=== PATIENT | female | born 1990 | race Caucasian/White ===

== ENCOUNTER 2023-05-20 20:44 | Emergency (ER) | payer OTHER, SELFPAY ==
[2023-05-20 20:45] VITALS: BP 144/101; PULSE 89; RESP 15; TEMP 36.6; O2SAT 97; BMI 32.8
--- NOTE | 2023-05-20 21:00 | EDS_ITS ---
HPI History of Present Illness Chief Complaint: Allergic Reaction Informant: patient Narrative Narrative: Patient presents with concern for allergic reaction. About 2 hours ago she noticed that she had a little fullness of her upper lip. She then looked in the mirror noticed that she had a little bit of facial swelling. Noticed that she had diffuse hives. There is some itching. But no trouble breathing. Patient had some eggs and potatoes for dinner but this is nothing different than she has had many times. No other known exposures. I do find out that the patient has had a little bit of a URI recently she has been taking some elhy-wfh-dfhywto cold medicine. I recommend she hold off on this as this is the only thing that is new or different and may be contributing to her symptoms. She has no history of allergy to any compounds and has never had anaphylaxis. PFSH PFS Home Medications famotidine 20 mg tablet (Pepcid) 20 mg PO DAILY #7 tabs 05/20/23 [Rx Last Taken Unknown] prednisone 20 mg tablet 60 mg (3 x 20 mg) PO DAILY #15 TABLETS 05/20/23 [Rx Last Taken Unknown] Allergy/AdvReac Type Severity Reaction Status Date / Time No Known Allergies Allergy Verified 05/20/23 20:50 Social History Smoking Status: Never smoker ROS ROS ED ROS Narrative A complete review of systems was performed and is negative except as documented in the history of present illness. Some specific details below. Constitutional: No recent fevers or chills. She has had some mild URI symptoms though. EYE: No discharge, visual complaints, or pain. ENT: No difficulty swallowing. Mild swelling of the lip. No trouble speaking. CV: No chest pain or palpitations. No syncope or near syncope. Respiratory: No trouble breathing. No wheezing. GI: No abdominal pain. No nausea vomiting diarrhea. No blood in stool. : No frequency dysuria or hematuria. Musculoskeletal: No recent trauma. No pains. No swelling. Skin: She does have diffuse hives. Mild itching. Neuro: No weakness or numbness. Endocrine: No polyuria or polydipsia. EXAM Physical Exam Narrative Exam Narrative: CONSTITUTIONAL: Patient is nontoxic in appearance. The patient looks comfortable. Work of breathing looks normal. HEENT: No notable trauma. Mucous membranes moist. She does have a little bit of fullness of her upper lip. Not on ARNOLDO inhibitors. No intraoral swelling. Tonsils look normal. Voice is normal. Swallowing and handling secretions are normal. EYES: No conjunctival injection. No proptosis. NECK:No JVD. No stridor. CARDIOVASCULAR: Regular rate. Regular rhythm. No notable murmur. No JVD. Pulses are normal distally RESPIRATORY: No respiratory distress. Breathing is unlabored. No wheezes. Saturations are normal 97% on room air showing no hypoxia. GASTROINTESTINAL: Not distended. Bowel sounds are normal. No tenderness. No guarding. No rebound. No palpable mass. No bruit is heard. GENITOURINARY: No tenderness over the bladder. No CVA tenderness. MUSCULOSKELETAL: Atraumatic. NEUROLOGICAL: Patient is alert and appropriate. No focal deficit noted. SKIN: Patient does have diffuse hives that michael easily with pressure. No vesicles. PSYCHIATRIC: Patient is calm. Mood is appropriate. Const Vital Signs: 05/20/23 20:45 Temperature 97.9 F Temperature Source Temporal Pulse Rate 89 Respiratory Rate 15 Blood Pressure 144/101 H Blood Pressure Mean 115 Pulse Ox 97 Oxygen Delivery Method Room Air MDM MDM MDM Narrative Medical decision making narrative: Patient's rechecked. The lip swelling is markedly better. The rash is better. There is still little bit of itching. No new symptoms have developed. Overall trend is improving. We will keep her on meds for several days. We discussed the reasons and dosing of these meds. If this is worsening, hives worsening, trouble breathing she should return. Discharge Plan Triage Chief Complaint: Allergic Reaction ED Provider: Jericho Childs Dx/Rx/DC Orders Clinical Impression: Allergic reaction Instructions: ED General Allergic Reactions Prescriptions: New prednisone 20 mg tablet 60 mg PO DAILY Qty: 15 0RF famotidine [Pepcid] 20 mg tablet 20 mg PO DAILY Qty: 7 0RF Primary Care Provider: Care Physician,No Primary Referrals: Blaine Tatum MD [Med Staff - Business Systems Administrator] - 3-5 Days Care Physician,No Primary [Primary Care Provider] - Activity Restrictions/Additional Instructions: Take Claritin once a day or 25-50 mg of Benadryl 3 times a day for the next 3-5 days Disposition Disposition: Home, Self Care 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 Next of kin: [place] law dictates a PRIORITY LIST for identifying legal decision-maker/legal next of kin in the following order (LNOK): 1st: The patient?s legal guardian, if any 2nd: The patient's spouse (if status is questionable, consult Risk Management) 3rd: The patient?s adult child(jeremías) (majority, if multiple children) 4th: The patient?s parents 5th: The patient?s adult siblings (majority, if multiple children siblings)
[2023-05-20] MEDS: MethylPREDNISolone 125 MG/2 ML Vial IV (21:46)
[2023-05-20] MEDS: Famotidine 200 MG/20 ML MDV 20 MG in 0.9% Normal Saline (Pres. free 8 ML 300 MG IV (21:46)
[2023-05-20] MEDS: 0.9% Normal Saline (1000mL) 1,000 ML 999 ML IV (21:46)
[2023-05-20] MEDS: DiphenhydrAMINE 50 MG/ML Syringe IV (21:46)
[2023-05-20 22:23] VITALS: BP 124/82; PULSE 102; RESP 16; O2SAT 98
== END 2023-05-20 22:24 | disposition home or self-care (01) ==
PROVIDERS: Emergency Provider Emergency Medicine; Visit Provider Emergency Medicine
DX: T78.40XA Allergy, unspecified, initial encounter (principal)
CPT/HCPCS: 96365; 96375; 99283; J7030; A4216; J3490